=== PATIENT | male | born 1970 | race Caucasian/White ===

== ENCOUNTER 2018-07-31 16:13 | Emergency (ER) | payer OTHER ==
--- NOTE | 2018-07-31 16:39 | PDOC ---
Rapid Medical Evaluation Chief Complaint: Injury Time Seen by Provider: 07/31/18 16:37 Medical Evaluation: 07/31/18 16:37 I have done a brief in-person assessment of this patient. The patient presents with a chief complaint of right side pain x 4 days. 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 Seen at another hospital with no fracture but presents complaining of pain persisting to right lower leg, knee, right hip and right shoulder. Denies loc at time of accident Pertinent physical exam findings NAD even and unlabored breathing has knee brace in place I have ordered the following: xray of lower leg and right hip The patient will proceed to the Ed for further evaluation. Dx: pain Discharge Disposition - Discharge Dispostion Condition at time of disposition: Stable - Referrals - Patient Instructions - Post Discharge Activity
[2018-07-31 16:40] VITALS: BP 143/76; PULSE 74; TEMP 97.7; BMI 27.1
--- NOTE | 2018-07-31 17:31 | PDOC ---
History of Present Illness - General Chief Complaint: Injury Stated Complaint: FALL AT WORK Time Seen by Provider: 07/31/18 16:37 - History of Present Illness Initial Comments: 07/31/18 17:28 47-year-old male presents for evaluation of right knee pain after fall off a ladder yesterday. No loss of consciousness. He did not hit his head. No post injury nausea vomiting or headaches. He does have right knee pain with difficulty in ambulation. Past History - Past Medical History Allergies/Adverse Reactions: Allergies Allergy/AdvReac Type Severity Reaction Status Date / Time No Known Allergies Allergy Verified 07/31/18 16:40 Home Medications: Ambulatory Orders NK [No Known Home Medication] 07/31/18 COPD: No CHF: No Lung CA: No - Surgical History GI Surgery: No Neurologic Surgery: No - Immunization History Immunization Up to Date: No - Suicide/Smoking/Psychosocial Hx Smoking History: Never smoked Have you smoked in the past 12 months: No Information on smoking cessation initiated: No Hx Alcohol Use: No Drug/Substance Use Hx: No Review of Systems - Review of Systems Musculoskeletal: Yes: Joint Pain *Physical Exam - Vital Signs Last Vital Signs Temp Pulse Resp BP Pulse Ox 97.7 F 74 18 143/76 98 07/31/18 16:37 07/31/18 16:37 07/31/18 16:37 07/31/18 16:37 07/31/18 16:37 - Physical Exam Comments: 07/31/18 17:28 Right knee skin color and temperature are normal. There is a moderate-sized intra-articular effusion. Range of motion 0-90 beyond that causes pain. His extensor mechanism works. Has a positive Lockman's. He stable to varus and valgus stress. He has pain over the lateral femoral condyle and lateral joint line. His thigh and calf are soft and nontender he has no gross sensorimotor deficits is neurovascularly intact. Moderate Sedation - Procedure Monitoring Vital Signs: Procedure Monitoring Vital Signs Temperature 97.7 F 07/31/18 16:37 Pulse Rate 74 07/31/18 16:37 Respiratory Rate 18 07/31/18 16:37 Blood Pressure 143/76 07/31/18 16:37 O2 Sat by Pulse Oximetry (%) 98 07/31/18 16:37 Medical Decision Making - Medical Decision Making 07/31/18 17:29 No fracture trauma or destructive process on radiograph today. He may weight- bear as tolerated with knee immobilizer and crutches and follow-up with orthopedic surgery *DC/Admit/Observation/Transfer Diagnosis at time of Disposition: ACL (anterior cruciate ligament) rupture - Discharge Dispostion Disposition: HOME Condition at time of disposition: Stable Decision to Admit order: No - Referrals Referrals: Scott Roach DO [Staff Physician] - - Patient Instructions Printed Discharge Instructions: DI for Anterior Cruciate Ligament Injury, Anterior Cruciate Ligament Injury Additional Instructions: He may weight-bear as tolerated with the use of crutches and the knee immobilizer. Follow-up with orthopedic surgery in 2-3 days for further evaluation and treatment options. Tylenol and Motrin as directed for pain. To come out of the knee immobilizer at home and do gentle range of motion as we discussed - Post Discharge Activity
== END 2018-07-31 17:32 | disposition home or self-care (01) ==
LOC: JERFT 16:13
CPT/HCPCS: 73502-TC-RT; 73560-TC-RT-FY; 73590-TC-RT-FY; 99281-25